=== PATIENT | male | born 1950 | race Two or more races ===

== ENCOUNTER 2024-06-24 09:46 | Emergency (ER) | payer OTHER ==
[~2024-06-24] VITALS: Ht 170.2 cm; Wt 71.7 kg
[2024-06-24] MEDS ORDERED: TAMSULOSIN HCL0.4 MG PO (10:19)
[2024-06-24] MEDS ORDERED: FENOFIBRATE160 MG PO (10:19)
[2024-06-24] MEDS ORDERED: METFORMIN HCL1000 M3 (10:19)
[2024-06-24] MEDS ORDERED: ROSUVASTATIN CA20 MG PO (10:20)
[2024-06-24] MEDS ORDERED: LOSARTAN POTAS100 MG PO (10:20)
[2024-06-24] MEDS ORDERED: TAMSULOSIN HCL 0.4 MG CAP PO ONE ×2 (10:30→10:42)
[2024-06-24] MEDS ORDERED: CEFTRIAXONE SODIUM 2,000 MG VIAL IV ONE (10:30)
[2024-06-24] MEDS ORDERED: KETOROLAC TROMETHAMINE 60 MG VIAL IM ONE ×2 (10:43→10:45)
[2024-06-24] MEDS ORDERED: CEFTRIAXONE SODIUM 2,000 MG VIAL ONE (10:43)
[2024-06-24] MEDS ORDERED: 0.9 % SODIUM CHLORIDE 1,000 ML IV ONE (10:45)
[2024-06-24] MEDS ORDERED: TRAMADOL HCL 50 MG TABLET PO ONE (10:45)
[2024-06-24 11:01] LABS: HEMATOCRIT 38.2 % (39.0-48.0); HEMOGLOBIN 12.7 g/dL (13-16.00); MEAN CELL VOLUME 91.8 fL (80.0-100.00); MEAN CORPUSCULAR HEMOGLOBIN 30.6 pg (27.00-32.0); MEAN CORPUSCULAR HGB CONC 33.3 g/dl (32.0-36.0); PLATELET COUNT 252 K/uL (150-450); RED BLOOD COUNT 4.16 M/uL (4.00-6.00); RED CELL DISTRIBUTION WIDTH 14.1 % (11.5-14.5)
[2024-06-24 11:16] LABS: ALBUMIN 3.9 gm/dL (3.4-5.0); BILIRUBIN TOTAL 0.41 mg/dL (0.3-1.2); CALCIUM 9.5 mg/dL (8.5-10.1); CREATININE SERUM 1.61 mg/dL (0.70-1.30); GFR 42.16; GLOBULINA 3.7 G/DL (2.4-3.5); POTASSIUM 3.94 mEq/L (3.5-5.1); TOTAL PROTEIN 7.6 gm/dL (6.4-8.2)
[2024-06-24 15:21] LABS: PH,URINE 8.5 (5.0-8.0); URINE APPEARANCE Clear; URINE BILIRRUBIN Negative (NEGATIVE); URINE BLOOD NHT; URINE COLOR Yellow; URINE GLUCOSE Negative (NEGATIVE); URINE KETONE Negative (NEGATIVE); URINE LEUKOCYTE Small; URINE NITRATE Negative; URINE PROTEIN 30 (NEGATIVE); URINE UROBILINOGEN 0.2 E.U./dl
[2024-06-24 15:25] LABS: URINE BACTERIA 42.8 uL (0.0-1933); URINE EPITHELIAL CELLS 4.4 uL (0.0-38.8); URINE WBC 153.8 uL (0.0-23.2)
[2024-06-24 15:37] LABS: URINE CAST 0.15 uL (0.0-1.40)
== END 2024-06-24 17:26 | disposition left against medical advice (07) ==
LOC: ER 09:48
PROVIDERS: General Practice
DX: R33.9 Retention of urine, unspecified (principal); N39.9 Disorder of urinary system, unspecified; E11.9 Type 2 diabetes mellitus without complications; Z79.84 Long term (current) use of oral hypoglycemic drugs; Z88.6 Allergy status to analgesic agent
CPT/HCPCS: 36415; 51702; 74177; 96365; 99284; J0696; J7030; Q9965